=== PATIENT | female | born 1965 | race Asian ===

== ENCOUNTER 2022-05-19 06:13 | Day surgery (SDC) | payer OTHER ==
[2022-05-18 09:50] VITALS: BMI 27.3
[2022-05-19] MEDS ORDERED: MIDAZOLAM HCL 2 MG/2 ML SINGLE DOSE VIAL ONE (07:06)
[2022-05-19] MEDS ORDERED: LIDOCAINE HCL/PF 2% SDV 5ML VIAL ONE (07:06)
[2022-05-19] MEDS ORDERED: PROPOFOL 40 ML ONE (07:06)
[2022-05-19] MEDS ORDERED: KETOROLAC TROMETHAMINE 30 MG/1 ML VIAL ONE (07:30)
[2022-05-19] MEDS ORDERED: DEXAMETHASONE SOD PHOSPHATE 4 MG/1 ML VIAL ONE (07:30)
[2022-05-19] MEDS ORDERED: ONDANSETRON 4 MG/2 ML VIAL ONE (07:30)
[2022-05-19] MEDS ORDERED: ACETAMINOPHEN INJECTION 100 ML IVPB ONE (07:52)
[2022-05-19] MEDS ORDERED: ACETAMINOPHEN 1000 MG/100 ML BAG IVPB ONE (07:55)
[2022-05-19 09:13] VITALS: BP 143/79; PULSE 78; RESP 18; TEMP 97.8
== END 2022-05-19 09:10 | disposition home or self-care (01) ==
LOC: FASU 06:13
PROVIDERS: ATTEND Orthopaedic Surgery Sports Medicine
PROC: 0SSCXZZ Reposition Right Knee Joint, External Approach (ICD-10-PCS; principal; 2022-05-19 07:30)
DX: M24.661 Ankylosis, right knee (principal)

== ENCOUNTER 2023-02-21 18:23 | Emergency (ER) | payer OTHER ==
[2023-02-21 18:29] VITALS: TEMP 98; BMI 28.7
[2023-02-21] MEDS ORDERED: ACETAMINOPHEN 1000 MG/100 ML BAG IVPB ONE (19:53)
[2023-02-21] MEDS ORDERED: FAMOTIDINE 20 MG/50 ML IVPB 20 MG/50 ML MG IVPB ONE ×2 (19:53→20:20)
[2023-02-21] MEDS ORDERED: MAG HYDROX/AL HYDROX/SIMETH 30 ML UNIT-DOSE CUP PO ONE (19:53)
[2023-02-21 19:58] LABS: BASO % 0.2 % (0-2.0); EOS % 3.5 % (0-4.5); HEMATOCRIT 39.6 % (32.4-45.2); HEMOGLOBIN 12.8 GM/dL (10.7-15.3); LYMPH % 25.6 % (8-40); MCH 27.9 pg (25.7-33.7); MCHC 32.5 g/dl (32.0-36.0); MEAN CELL VOLUME 86.1 fl (80-96); MEAN PLT VOLUME 8.9 fl (7.5-11.1); MONO % 5.6 % (3.8-10.2); NEUT % 65.1 % (42.8-82.8); PLATELET COUNT 231 10^3/uL (134-434); RDW 13.6 % (11.6-15.6)
[2023-02-21] MEDS ORDERED: LACTATED RINGERS SOLUTION 1,000 ML/1,000 ML INFUS.BAG IV SCH (20:00)
[2023-02-21] MEDS ORDERED: ASPIRIN 81 MG CHEWABLE TABLETS PO ONE (20:04)
[2023-02-21 20:13] LABS: INR 1.01 (0.83-1.09); PROTHROMBIN TIME (PATIENT) 11.7 SEC (9.7-13.0)
[2023-02-21 20:14] LABS: POTASSIUM 4.3 mmol/L (3.5-5.1)
[2023-02-21 20:15] LABS: ACTIVATED PTT 35.2 SECONDS (25.2-36.5)
[2023-02-21 20:17] LABS: ALBUMIN 3.8 g/dl (3.4-5.0); BLOOD UREA NITROGEN 14.5 mg/dL (7-18); CALCIUM 9.3 mg/dL (8.5-10.1)
[2023-02-21 20:18] LABS: MAGNESIUM 2.4 mg/dL (1.8-2.4)
[2023-02-21 20:20] LABS: CREATININE 0.9 mg/dL (0.55-1.3)
[2023-02-21] MEDS ORDERED: MAG HYDROX/AL HYDROX/SIMETH 30 ML UNIT-DOSE CUP ONE (20:20)
[2023-02-21] MEDS ORDERED: ASPIRIN 81 MG CHEWABLE TABLETS ONE (20:20)
[2023-02-21] MEDS ORDERED: ACETAMINOPHEN INJECTION 100 ML IVPB ONE (20:20)
[2023-02-21 20:22] LABS: BILIRUBIN,TOTAL 0.3 mg/dL (0.2-1); TOT PROT 7.9 g/dl (6.4-8.2)
[2023-02-21] MEDS ORDERED: FAMOTIDINE 20 MG TABLET ONE (22:42)
[2023-02-21 23:13] VITALS: BP 160/87; PULSE 67; RESP 18
== END 2023-02-21 23:31 | disposition home or self-care (01) ==
LOC: JER 18:23
PROC: 3E033GC Introduction of Other Therapeutic Substance into Peripheral Vein, Percutaneous Approach (ICD-10-PCS; principal; 2023-02-21)
PROC: 3E033NZ Introduction of Analgesics, Hypnotics, Sedatives into Peripheral Vein, Percutaneous Approach (ICD-10-PCS; 2023-02-21)
DX: R07.89 Other chest pain (principal); R11.0 Nausea
CPT/HCPCS: 36415; 71046-TC-FY; 71275-TC; 80053; 83690; 83735; 84484; 85025; 85379; 85610; 85730; 93005; 93010; 99285-25; Q9967